=== PATIENT | male | born 1955 | race Two or more races ===

== ENCOUNTER 2019-01-29 06:27 | Day surgery (SDC) | payer OTHER ==
[~2019-01-29] VITALS: Ht 165.1 cm; Wt 68.0 kg
[~2019-01-29 06:27] MED LIST: PANT40TA2 PO
[2019-01-29 07:55] LABS: Basophils # (auto) 0 uL; Basophils % (auto) 0.5 % (0.0-2.0); Eosinophils # (auto) 0.1 uL; Eosinophils % (auto) 1.6 % (0.0-7.0); Hematocrit 40.8 % (41.0-53.0); Hemoglobin 14.1 g/dL (13.5-17.5); Lymphocytes % (auto) 26.3 % (10.0-50.0); Mean Corpuscular Hgb Conc. 34.6 g/dL (32.0-36.0); Mean Corpuscular Volume 86.8 fL (80.0-100.0); Monocytes # (auto) 0.3 uL; Monocytes % (auto) 7.5 % (0.0-12.0); Neutrophils # (auto) 2.5 uL; Neutrophils % (auto) 64.1 % (37.0-80.0); Nucleated Red Blood Cells % 0.5 %; Platelet Count (auto) 164 10^3/uL (140-450); Red Cell Distribution Width 14.9 % (11.8-14.3); White Blood Cell 3.9 10^3/uL (4.4-10.8)
[2019-01-29 08:13] LABS: INR 1.02 (0.9-1.15); Partial Thromboplastin Time 29.6 sec (23.64-32.05)
[2019-01-29] MEDS ORDERED: NALOXONE HCL 0.4 MG/ML VIAL ONE (08:25)
[2019-01-29] MEDS ORDERED: FLUMAZENIL 0.1 MG/ML INJ 10ML MDV IV ONE (08:25)
[2019-01-29] MEDS ORDERED: MIDAZOLAM HCL 5 MG/ML-1ML VIAL ONE (08:25)
[2019-01-29] MEDS ORDERED: SODIUM CHLORIDE LOCK 10 ML ONE (08:25)
[2019-01-29] MEDS ORDERED: diphenhdrAMINE HCL 50 MG/1 ML VL ONE (08:26)
[2019-01-29] MEDS ORDERED: fentaNYL CITRATE 100 MCG/2 ML VL ONE (08:26)
== END 2019-01-29 10:00 | disposition home or self-care (01) ==
LOC: GI 06:27
PROVIDERS: ATTEND Internal Medicine Gastroenterology
DX: K63.5 Polyp of colon (principal); K63.3 Ulcer of intestine; K63.89 Other specified diseases of intestine; I10 Essential (primary) hypertension; Z98.0 Intestinal bypass and anastomosis status; Z87.891 Personal history of nicotine dependence
CPT/HCPCS: 36415; 45380; 85025; 85610; 85730; J1200; J2250; J3010; J7030; 99152